=== PATIENT | female | born 2000 | race Caucasian/White ===

== ENCOUNTER 2023-10-05 21:17 | Emergency (ER) | payer OTHER, SELFPAY ==
[2023-10-05 21:20] VITALS: BP 134/86; PULSE 105; RESP 16; TEMP 36.7; O2SAT 99
== END 2023-10-06 00:24 | disposition left against medical advice (07) ==
LOC: ANHED 23:31
PROVIDERS: PCP Pediatrics
DX: R59.0 Localized enlarged lymph nodes (principal)
CPT/HCPCS: 99199